=== PATIENT | female | born 1975 | race Caucasian/White ===

== ENCOUNTER → 2024-10-19 13:22 | Outpatient (BNVA) | payer OTHER, SELFPAY | PROVIDERS: Family Provider Family Medicine; PCP Nurse Practitioner Family; Visit Provider Psychiatry & Neurology Psychiatry | DX: F33.2 Major depressive disorder, recurrent severe without psychotic features (principal); F41.1 Generalized anxiety disorder | CPT/HCPCS: 80053; 80061; 83036; 84443; 85025 ==